=== PATIENT | male | born 2000 | race African-American/Black ===

== ENCOUNTER 2022-01-07 09:50 | Emergency (ER) | payer OTHER ==
[~2022-01-07] VITALS: Ht 175.3 cm; Wt 65.0 kg
[2022-01-07] MEDS ORDERED: PRED20TA PO (12:10)
[2022-01-07 12:22] VITALS: BP 132/73
== END 2022-01-07 12:23 | disposition home or self-care (01) ==
LOC: M ED 09:50
DX: R06.02 Shortness of breath (principal); J45.909 Unspecified asthma, uncomplicated; Z91.010 Allergy to peanuts